=== PATIENT | male | born 1945 | race Caucasian/White ===

== ENCOUNTER 2019-10-01 09:33 | Outpatient (CLI) | payer MEDICARE, OTHER, SELFPAY ==
--- NOTE | ~2019-10-01 | XR_ITS ---
EXAMINATION: XR chest 2V DATE: 10/01/2019 11:04 INDICATION: Preoperative evaluation with risk factor of hypertension. TECHNIQUE: PA and lateral views of the chest were obtained. COMPARISON: Chest radiograph dated 07/09/2018 FINDINGS: The lungs remain clear with no focal airspace opacities, pulmonary edema, pleural effusion or pneumot horax. The cardiomediastinal silhouette is normal. Mild thoracic spondylosis. IMPRESSION: 1. No acute cardiopulmonary disease. Reviewed, dictated and finalized at location A.
[2019-10-01 11:19] LABS: Basophils Percent Auto 0.6 % (0.2-1.2); Eosinophils Absolute Auto 0.1 K/mm3 (0-0.3); Eosinophils Percent Auto 1.8 % (0-4.4); Hematocrit 44.5 % (42.0-52.0); Hemoglobin 15.3 g/dL (14.0-18.0); Immature Granulocyte Absolute 0.03 K/mm3 (0.00-0.031); Immature Granulocyte Percent A 0.4 % (0-0.5); Lymphocytes Absolute Auto 2.69 K/mm3 (0.9-3.2); Lymphocytes Percent Auto 37.7 % (18.3-44.2); Mean Corpuscular HGB Conc 34.4 g/dl (32-36); Mean Corpuscular Hemoglobin 30.8 pg (26-34); Mean Corpuscular Volume 89.5 fl (80-100); Mean Platelet Volume 9.9 fl (7.4-10.4); Monocytes Absolute Auto 0.8 K/mm3 (0.1-0.6); Monocytes Percent Auto 10.5 % (2.6-8.5); Neutrophils Absolute Auto 3.5 K/mm3 (1.3-6.7); Platelet Count Result 206 k/mm3 (150-375); Red Blood Count 4.97 M/mm3 (4.6-6.20); Red Cell Distribution Width 12.7 % (11.5-14.5); White Blood Count 7.1 K/mm3 (4.5-10.0)
[2019-10-01 11:24] LABS: Hemoglobin A1C 6.2 % (<5.7)
[2019-10-01 11:27] LABS: Albumin Level 4.6 g/dL (3.5-5.1); Blood Urea Nitrogen 26 mg/dL (9-20); Calcium 9.6 mg/dL (8.4-10.2); Carbon Dioxide 27 mmol/L (22-30); Chloride 103 mmol/L (98-107); Estimated Glomerular Filt Rate > 60; Glucose 128 mg/dL (75-110); Potassium 4.3 mmol/L (3.4-5.0); Sodium 139 mmol/L (137-145)
[2019-10-01 11:30] LABS: Urine Cotinine NEGATIVE
== END 2019-10-01 09:34 | disposition home or self-care (01) ==
LOC: ANHSURGERY 09:38
PROVIDERS: Visit Provider Orthopaedic Surgery
DX: M16.12 Unilateral primary osteoarthritis, left hip (principal)
CPT/HCPCS: 36415; 71046; 80048; 80307; 82040; 83036; 85025; 87070

== ENCOUNTER 2019-10-25 00:54 | Outpatient (CLI) | payer MEDICARE, OTHER, SELFPAY ==
[2019-10-25 19:20] LABS: SARS-CoV-2 RNA PCR Negative
== END 2019-10-25 00:55 | disposition home or self-care (01) ==
LOC: ANHCOVIDDT 00:55
PROVIDERS: Visit Provider Orthopaedic Surgery
DX: Z01.812 Encounter for preprocedural laboratory examination (principal); Z11.59 Encounter for screening for other viral diseases
CPT/HCPCS: 87635; C9803; U0003

== ENCOUNTER 2019-10-27 02:24 | Day surgery (SDC) | payer MEDICARE, OTHER, SELFPAY ==
[2019-10-01 10:11] VITALS: BMI 31.4
[2019-10-01 12:49] VITALS: BP 129/70; PULSE 66; RESP 18; TEMP 37; O2SAT 97
--- NOTE | 2019-10-25 15:03 | HP_ITS ---
DATE OF SERVICE: 10/27/2019 ADMIT DIAGNOSIS: Degenerative joint disease, left hip. HISTORY OF PRESENT ILLNESS: Mr. Pugh is a 73-year-old male patient of Dr. Howard, who presents today for a left total hip arthroplasty. He had a right total hip done with Dr. Smiley in August 2018. It has done very well for him and he is very happy with it. Unfortunately, his left hip is severely arthritic and he has reached a point where it is affecting him on a daily basis and he would like to proceed with total hip arthroplasty on the left at this time. PAST SURGICAL HISTORY: Significant for the total hip done approximately 1 year ago. He has also had eye surgery in 2009. PAST MEDICAL HISTORY: He has history of hypertension as well as gout. CURRENT MEDICATIONS: He takes allopurinol 100 mg daily, baby aspirin daily, atorvastatin 20 mg daily, Pepcid 20 mg daily, hydrochlorothiazide 12.5 mg daily, Mobic 15 mg daily, metoprolol 50 mg daily, pantoprazole 20 mg daily, telmisartan 20 mg daily. ALLERGIES: HE HAS NO KNOWN DRUG ALLERGIES. FAMILY HISTORY: Significant diabetes and heart disease. SOCIAL HISTORY: He has never smoked. PHYSICAL EXAMINATION: VITAL SIGNS: A 73-year-old male, who is 5 feet 8 inches and 219 pounds. Other vital signs per nursing on the morning of surgery. HEENT: Grossly normal. LUNGS: Clear bilaterally. HEART: Regular rate and rhythm. EXTREMITIES: He walks with mild limp. Flexion of his left hip is 115 with moderate pain. Internal rotation is to 0, external rotation is to 25, again with moderate pain in the groin. He has moderate pain in the groin with Stinchfield maneuvers and he has normal abduction strength in the lateral position. No tenderness over the greater trochanter. Skin around the hip is all normal. He has no edema in the lower extremities, 2+ posterior tibial pulse, 1+ dorsalis pedis pulse. He has normal muscle strength in all muscle groups of the left lower extremity. IMAGING DATA: X-rays demonstrate severe jwys-sf-fkaf arthritis type 1 in the left hip. IMPRESSION: Mr. Pugh has severe painful arthritis of his left hip. He has not improved with nonsurgical treatment. He is very happy with his right total hip, feels he is ready to proceed with the left. Surgical procedure as well as risks and complications were reviewed. All questions were answered and we will proceed. The patient will see his primary care doctor for presurgical clearance. He has also been seen by Dr. Miller, the woodyard operator. He has had a stress test done and has been cleared for surgery. He will stop his aspirin 1 week prior to surgery. His ejection fraction was at 78%. Chem panel was all within normal limits. Creatinine is 1.1. GFR is greater than 60. Hemoglobin is 15.3, platelets are 206. Nasal swab was negative. D I MT: Queenie
[2019-10-27] VITALS (12 sets, daily range): BP systolic 119–158; BP diastolic 55–71; PULSE 58–80; RESP 12–20; TEMP 35.2–36.4; O2SAT 95–100; BMI 31.0; BMI 30.7
--- NOTE | ~2019-10-27 | XR_ITS ---
XR surgery orthopedic DATE: 10/27/2019 15:41 INDICATION: Left hip replacement TECHNIQUE: 2 views 59.0 seconds fluoroscopy time [id number] [id number] COMPARISON: 08/05/2018 FINDINGS: Status post left femoral head neck resection and left total hip arthroplasty. Normal alignm ent at the left hip. Surgical clips overlie the inguinal area bilaterally. IMPRESSION: Status post left total hip arthroplasty Reviewed, dictated and finalized at Location A. Reviewed, dictated and finalized at location B.
--- NOTE | ~2019-10-27 | XR_ITS ---
XR hip LT 1V w AP pelvis DATE: 10/27/2019 16:06 INDICATION: Left hip total hip arthoplasty TECHNIQUE: AP and lateral views of left hip COMPARISON: None FINDINGS: Status post bilateral hip arthroplasty. There is subcutaneous emphysema at the left hip ar ea due to today's surgery. There is surgical drain at the left hip soft tissues. No fracture or disl ocation. IMPRESSION: Bilateral hip arthroplasty, immediately postoperative on the left Reviewed, dictated and finalized at location B.
[2019-10-27] MEDS: LACTATED RINGERS 1,000 ML 30 ML IV CONT ×3 (10:30→16:14)
[2019-10-27] MEDS: TRANEXAMIC ACID 1,000MG/ISO100 1,000 MG/100 ML BAG 200 MG IVPB (10:48)
[2019-10-27] MEDS: KETOROLAC 15 MG/ML VIAL (*BKC) IV PUSH (10:48)
[2019-10-27] MEDS: ACETAMINOPHEN 500 MG TABLET 1000 MG PO ×2 (10:59→17:56)
--- NOTE | 2019-10-27 11:30 | WPDANESEPPF ---
Anes - Initial Pre Proc Eval Procedure: Operation Date: 10/27/19 12:00 Proposed Procedures p Left Total Hip Arthroplasty, Anterior Approach - Lopez Smiley MD Date/Time: 10/27/19 11:30 Surgeon: Lopez Smiley MD Pre Op Diagnosis: Osteoarthritis Left Hip Patient Data Age: 73 Gender: M Height: 5 ft 9.5 in Weight: 96.8 kg Last Vital Signs Temp 97.5 F L 10/27/19 11:02 Pulse 67 10/27/19 11:02 Resp 18 10/27/19 11:02 BP 158/71 H 10/27/19 11:02 Pulse Ox 99 10/27/19 11:02 Allergies Allergy/AdvReac Type Severity Reaction Status Date / Time No Known Allergies Allergy Verified 10/27/19 10:55 Home Medications Medication Instructions Recorded Confirmed Type allopurinol 100 mg PO TID 10/01/19 10/27/19 History aspirin [Enteric Coated Aspirin] 81 mg PO DAILY 10/01/19 10/27/19 History atorvastatin 20 mg PO HS 10/01/19 10/27/19 History coQ10 (ubiquinol) 100 mg PO HS 10/01/19 10/27/19 History famotidine 20 mg PO BID 10/01/19 10/27/19 History hydrochlorothiazide 12.5 mg PO QPM 10/01/19 10/27/19 History lactobacillus combination no.4 3,000 mmu cells PO DAILY 10/01/19 10/27/19 History [Probiotic] melatonin 5 mg PO PRN PRN 10/01/19 10/27/19 History metoprolol succinate 50 mg PO QPM 10/01/19 10/27/19 History multivitamin,bc-sylm-bazcmlua 1 tablet PO DAILY 10/01/19 10/27/19 History [Complete Multivitamin] omega 4-etv-ppd-fish oil [[place]-3] 1 cap PO BID 10/01/19 10/27/19 History saw palmetto 160 mg PO HS 10/01/19 10/27/19 History telmisartan [Micardis] 20 mg PO QPM 10/01/19 10/27/19 History turmeric 400 mg PO BID 10/01/19 10/27/19 History Patient hx anesthesia problems: none Family hx anesthesia problems: none PMFSH Past Medical History Medical History (Updated 10/27/19 @ 11:21 by Aris Roach MD) Hyperlipidemia Hypertension JENSEN (obstructive sleep apnea) Anes - Eval Final PreProcedure Day of Procedure 10/27/19 11:30 Patient weight: overweight Heart: regular rate and rhythm Lungs: clear to auscultation Airway: Mallampati scale (has implanted upper frontal teeth he is concerned about) class II Neurological: alert and oriented Last oral intake: >/= 8 hours ASA classification: III Emergent: no Anesthetic plan: proceed Anesthesia type and monitoring: general ETT and standard monitoring Informed Consent: The patient's anesthetic plan and its attendant risks and benefits were discussed with the patient/family/POA. Questions were solicited and answers provided to the satisfaction of the patient/family/POA.
--- NOTE | 2019-10-27 11:43 | WPDHPUPDATE1 ---
History and Physical Update Update Date/Time: 10/27/19 11:43 History and Physical has been reviewed, including an updated exam of the patient. There are NO changes in the patient's condition. Risks, benefits, and alternatives have been discussed and questions answered. Patient agrees to proceed with procedure.
[2019-10-27] MEDS: ceFAZolin 2 GM/D5W 50 ML 2 GM/50 ML BAG IVPB (12:08)
[2019-10-27] MEDS: ceFAZolin SODIUM 1 GM VIAL 3 GM IRRIGATION (13:01)
[2019-10-27] MEDS: ceFAZolin SODIUM 1 GM VIAL IV PUSH (15:30)
--- NOTE | 2019-10-27 16:15 | PM.PROC ---
Procedure Note - Detailed Date of procedure: 10/27/19 Pre-op diagnosis: Osteoarthritis Left Hip Patient brought to the operating room and general anesthesia was administered the left hip prepped and draped usual fashion after positioned carefully on the OSI [place] table the feet carefully padded. He received weight based vancomycin 2 g of Ancef 1 g of tranexamic acid preoperatively. A 10 cm longitudinal incision was made starting 3 cm lateral to the ASIS. Dissection was carried down to the fascia over the tensor fascia aniya which was longitudinally incised. the interval between tensor fascia aniya and rectus femoris was developed. Crossing vessels of the ascending lateral femoral circumflex vessels were isolated ligated with suture and divided. Capsule was exposed. The gluteus minimus was elevated off the lateral capsule by abducting the leg and internally rotating this. Capsule was incised in the usual fashion and femoral neck osteotomy performed. A napkin ring of bone was removed. The femoral head was very difficult to extract and we ended up piece medially in the periphery of the femoral head which made it much smaller removed all the large rimming osteophyte and it was removed. the residual labrum was excised. The acetabulum had no remaining cartilage and was quite sclerotic. The leg was externally rotated and extended and the interval between piriformis and conjoined tendon was incised which allowed the piriformis to foot posteriorly. Anterior cap the leg was brought to a neutral position and the anterior capsule was elevated off the femur. Hemostasis was achieved with the Aquamantys. The acetabulum was reamed up to 59 mm and the 59 trial was very tight and we were not quite at the peripherally anteriorly and posteriorly. We reamed to a 60 and this 60 trial was very tight fact was briefly stock was so tight and this gave complete reaming of the anterior posterior mcclellan and superiorly. we chose the size 60 pinnacle shell which was impacted at 40? of abduction and appropriate anteversion and obtained a super Press-Fit. A single screw was also placed in the ilium and the 36 mm inner diameter liner was placed without difficulty. Large anteroinferior and inferior osteophytes removed at this time. The acetabulum tended to bleed quite a bit and bleeding had ceased with impaction of the acetabular liner. The leg was externally rotated extended and we broached the femur up to a size 6 with seemed to be getting a little bit tight with because of his ex Petterchak and bone quality. We took an intraoperative x-ray with the 1.5 neck and we were a little bit short by a couple of mm and the offset was diminished compared to the other side and clinically we were a little bit loose with a mildly excessive shock. I trialed with the size 5 mm head and this gave appropriate stability feel with shock and it was stable to external rotation lateral traction. We calcar planed and assess the size 6 stem and now I could cause a little bit of wiggle in the stem. The x-ray showed the probably go up 1 size and we removed the 6 broach and impacted the 7 broach using the pneumatic impactor device. This eventually seated to the level of the neck and had complete torsional and varus valgus stability. We chose the 7 high offset ACTIS stem and this impacted nicely to eventually come to rest on the neck with excellent stability. The trunnion was cleaned and dried and the size 5 mm neck 36 mm diameter ceramic femoral head was impacted firmly onto the trunnion. The wound was thoroughly irrigated with antibiotic solution again and the hip reduced and stability reconfirmed. He had ample Shuck but excellent stability. Final fluoroscopic x-ray view showed components in appropriate position. The anterior capsular flap was allow to left rest in situ. Earlier we had removed some of the lateral capsular flap for improved exposure. The local anesthetic cocktail was injected into the periarticular sof
--- NOTE | 2019-10-27 17:19 | ADMGEN ---
This patient, Zohaib Pugh, was admitted to Medical Room 243-01. Patient/family oriented to hospital policies and general routines including ID bracelet, bed and alarms, visiting hours, pain management, procedures, bathroom and other care routines, personal items, smoking policy, room service/diet, and visiting hours. Valuables list has been completed. Information on how to activate the Rapid Response Team has been discussed. Patient/Family are encouraged to report perceived risks to care and to ask questions if they do not understand what they are told or what they should do.
[2019-10-27] MEDS: SODIUM CHLORIDE 0.9% IV 1,000 ML 125 ML IV CONT (17:55)
[2019-10-27 17:58] LABS: Hematocrit 40.4 % (42.0-52.0); Hemoglobin 14.1 g/dL (14.0-18.0)
[2019-10-27] MEDS: SENNA/DOCUSATE SODIUM TABLET 2 TAB PO (18:29)
[2019-10-27] MEDS: TELMISARTAN 20 MG TABLET PO (18:29)
--- NOTE | 2019-10-27 18:43 | PC.NURSE ---
Paged Dr. Smiley in regards to clarifications on stool softeners.
[2019-10-27] MEDS: ATORVASTATIN 20 MG TABLET PO (20:59)
[2019-10-27] MEDS: FAMOTIDINE 20 MG TABLET PO (21:00)
--- NOTE | 2019-10-27 21:48 | PM.IMCN ---
Assessment and Plan Assessment and plan (1) History of total left hip arthroplasty: Code(s): Z96.642 - Presence of left artificial hip joint Status: Acute Assessment and Plan: Postop care per orthopedic physician. Pain management per orthopedic physician. DVT prophylaxis per Dr. bautista. Patient has incentive spirometer ordered. He has SCDs and DENNIS hose on. Patient continues on Celebrex. the patient is also on Eliquis. (2) BPH (benign prostatic hyperplasia): Code(s): N40.0 - Benign prostatic hyperplasia without lower urinary tract symptoms Status: Chronic Assessment and Plan: Patient takes tivs-gfi-rsxopow saw palmetto. He stated that it was slightly enlarged he also takes turmeri (3) Hyperlipidemia: Code(s): E78.5 - Hyperlipidemia, unspecified Status: Chronic Assessment and Plan: Continue with atorvastatin. (4) Hypertension: Code(s): I10 - Essential (primary) hypertension Status: Chronic Assessment and Plan: Patient is on Micardis. (5) Gout: Code(s): M10.9 - Gout, unspecified Status: Chronic Assessment and Plan: Patient typically takes allopurinol HPI Data of Consult Consult date: 10/27/19 Requesting Physician: Lopez Bautista MD Primary Care Provider: PHYSICIAN NOT ON STAFF Consult Narrative Narrative: Zohaib Pugh is a 73 year old male who has had a previous right total hip arthroplasty performed per Dr. bautista approximately 1 year ago and seemed to do well is August of 2018. The patient has severe osteoarthritis in both hips. The patient stated that he has been suffering for a long time with arthritis pain. He said he can walk fine but he can't run and he has been living with daily pain. He has tried Mobic which she stated does not work very well for him. He still has pain that affects his daily living. Patient stated that he could have his hip replaced at the [facility] but he would not be able to do the anterior version Thereforehe decided to have it done here. see operative report. Patient has a Drain to the left hip. estimated blood loss 1100. Patient was given 650 cc of red blood cells from [employer] at the end of the procedure. I thank Dr. bautista for the opportunity to consult on this patient. Date of service is 10/27/2019 Review of Systems Review of Systems: All systems reviewed & are unremarkable except as noted in HPI and below Constitutional: Constitutional: Reports as per HPI and Reports no additional constitutional complaints Eyes: Eyes: Reports as per HPI and Reports no additional eye complaints ENT: Reports system reviewed and no additional complaints, except as documented and Reports Normal hearing present Cardiovascular: Cardiovascular: Reports no additional cardiovascular complaints Respiratory: Respiratory: Reports no additional respiratory complaints and Reports no additional respiratory complaints Gastrointestinal: Gastrointestinal: Reports as per HPI and Reports no additional gastrointestinal complaints Musculoskeletal: Musculoskeletal: Reports no additional musculoskeletal complaints Integumentary/Breasts: Skin/Breast: Reports system reviewed and no additional complaints, except as docu and Reports as per HPI Neurologic: Reports system reviewed and no additional complaints, except as documented, Reports as per HPI and Reports Normal hearing present Psychiatric: Psychiatric: Reports no additional psychiatric complaints and Reports as per HPI Endocrine: Endocrine: Reports no additional endocrine complaints Hematologic/Lymphatic: Hematologic/Lymphatic: Reports no additional hematologic/lymphatic complaints Allergic/Immunologic: Allergic/Immunologic: Reports no additional allergic/immunologic complaints [facility] Past Medical History Medical History (Updated 10/27/19 @ 21:59 by Ana Escalante NP) Atrophic kidney BPH (benign prostatic hyperplasia) slightly enla
[2019-10-28] MEDS: ACETAMINOPHEN 500 MG TABLET 1000 MG PO ×3 (01:48→12:47)
[2019-10-28 01:55] VITALS: BP 110/49; PULSE 82; RESP 16; TEMP 36.5; O2SAT 96
[2019-10-28 05:09] LABS: Basophils Percent Auto 0.1 % (0.2-1.2); Hematocrit 35.6 % (42.0-52.0); Hemoglobin 12.4 g/dL (14.0-18.0); Immature Granulocyte Absolute 0.06 K/mm3 (0.00-0.031); Immature Granulocyte Percent A 0.4 % (0-0.5); Lymphocytes Percent Auto 8.4 % (18.3-44.2); Mean Corpuscular HGB Conc 34.8 g/dl (32-36); Mean Platelet Volume 10.1 fl (7.4-10.4); Monocytes Absolute Auto 1.3 K/mm3 (0.1-0.6); Monocytes Percent Auto 8.4 % (2.6-8.5); Neutrophils Absolute Auto 12.9 K/mm3 (1.3-6.7); Neutrophils Percent Auto 82.7 % (45.5-73.1); Platelet Count Result 153 k/mm3 (150-375); Red Cell Distribution Width 12.7 % (11.5-14.5); White Blood Count 15.5 K/mm3 (4.5-10.0)
[2019-10-28 05:32] VITALS: BP 114/53; PULSE 87; RESP 16; TEMP 36.7; O2SAT 95
[2019-10-28 05:33] LABS: Anion Gap 11.2 mmol/L (7-16); Blood Urea Nitrogen 22 mg/dL (9-20); Calcium 8.4 mg/dL (8.4-10.2); Carbon Dioxide 24 mmol/L (22-30); Chloride 104 mmol/L (98-107); Estimated CRCL calculation 66 ml/min; Estimated Glomerular Filt Rate > 60; Glucose 148 mg/dL (75-110); Potassium 4.2 mmol/L (3.4-5.0); Sodium 135 mmol/L (137-145)
--- NOTE | 2019-10-28 07:13 | PM.PNORT ---
Progress Note: A&P Additional Plan POD 1 alert avss labs-noted, pt having min pain, drain to come out this am, pt got to floor late yesterday-has not been up walking yet, wd-dry NVI. Plan to have PT work with pt today and then home later today Subjective Subjective Date/Time Seen: 10/28/19 07:13 Objective Data Vital Signs Vital Signs: Vital Signs - 24 hr 10/27/19 11:02 10/27/19 16:14 10/27/19 16:23 Temperature 36.4 C L 36.4 C Pulse Rate 67 76 77 Respiratory Rate 18 20 16 Blood Pressure 158/71 H 131/56 L 127/58 L Pulse Oximetry 99 100 100 10/27/19 16:30 10/27/19 16:45 10/27/19 17:00 Temperature Pulse Rate 73 70 69 Respiratory Rate 12 12 12 Blood Pressure 121/55 L 128/55 L 119/58 L Pulse Oximetry 99 95 100 10/27/19 17:07 10/27/19 17:25 10/27/19 17:40 Temperature 35.2 C L 35.3 C L Pulse Rate 67 69 58 L Respiratory Rate 13 16 16 Blood Pressure 129/56 L 134/59 L 128/61 Pulse Oximetry 99 100 100 10/27/19 18:10 10/27/19 19:10 10/27/19 22:00 Temperature 35.4 C L 36.3 C L 36.4 C Pulse Rate 61 79 80 Respiratory Rate 16 12 16 Blood Pressure 135/56 L 126/59 L 121/60 Pulse Oximetry 100 100 97 10/28/19 01:55 10/28/19 05:32 Temperature 36.5 C 36.7 C Pulse Rate 82 87 Respiratory Rate 16 16 Blood Pressure 110/49 L 114/53 L Pulse Oximetry 96 95 Intake/Output Intake/Output: Intake & Output 10/25/19 10/26/19 10/27/19 10/28/19 23:59 23:59 23:59 23:59 Intake Total 400 1120 Output Total 300 300 Balance 100 820 Meds/Results Medications: Active Medications Generic Name Dose Route Start Last Admin Trade Name Freq PRN Reason Stop Dose Admin Acetaminophen 1,000 mg 10/27/19 18:00 10/28/19 06:32 Tylenol Tablet PO 1,000 mg Q6HR JEISON Administration Allopurinol 100 mg 10/28/19 08:00 Zyloprim PO TIDWM JEISON Apixaban 2.5 mg 10/28/19 09:00 Eliquis PO 12/01/19 21:01 Q12HR JEISON Atorvastatin Calcium 20 mg 10/27/19 21:00 10/27/19 20:59 Lipitor PO 20 mg HS JEISON Administration Celecoxib 200 mg 10/28/19 08:00 Celebrex PO DAILY@0800 [facility] Docusate Sodium 100 mg 10/28/19 09:00 Colace Capsule PO Q12HR JEISON Famotidine 20 mg 10/27/19 21:00 10/27/19 21:00 Pepcid PO 20 mg Q12HR JEISON Administration Vancomycin HCl 1,000 mg in 250 mls @ 250 mls/hr 10/27/19 23:00 10/27/19 23:14 Vancomycin 1,000 Mg/D5w 250 Ml IVPB 10/28/19 11:59 250 mls/hr Q12H JEISON Administration Cefazolin Sodium 1 gm in 50 mls @ 100 mls/hr 10/27/19 20:00 10/28/19 06:00 Ancef 1 Gm/D5w 50 Ml Pm IVPB 10/28/19 12:29 100 mls/hr Q8H JEISON Administration Magnesium Hydroxide 30 ml 10/27/19 17:08 Milk Of Magnesia PO BID PRN Constipation Naloxone HCl 0.1 mg 10/27/19 17:08 Narcan IV PUSH Q2M PRN Opiate Reversal Oxycodone HCl 5 mg 10/27/19 18:00 10/28/19 06:32 Roxicodone Ir Tablet PO 5 mg Q4H JEISON Administration Oxycodone HCl 5 mg 10/27/19 17:08 Roxicodone Ir Tablet PO Q4H PRN Pain Rated 7-10 Telmisartan 20 mg 10/27/19 18:00 10/27/19 18:29 Micardis PO 20 mg QPM JEISON Administration Radiology Results: ITS Impressions Intraoperative X-Ray 10/27/19 15:45 IMPRESSION: Status post left total hip arthroplasty Hip/Pelvis X-Ray 10/27/19 16:11 IMPRESSION: Bilateral hip arthroplasty, immediately postoperative on the left Labs Labs: Laboratory Results - last 24 hr 10/27/19 10/27/19 10/28/19 10:40 17:47 04:52 WBC 15.5 H RBC 4.00 L Hgb 14.1 12.4 L Hct 40.4 L 35.6 L MCV 89.0 MCH 31.0 MCHC 34.8 RDW 12.7 Plt Count 153 MPV 10.1 Immature Gran % (Auto) 0.4 Neut % (Auto) 82.7 H Lymph % (Auto) 8.4 L [place] % (Auto) 8.4 Eos % (Auto) 0.0 Baso % (Auto) 0.1 L Lymph # (Auto) 1.30 [place] # (Auto) 1.3 H Eos # (Auto) 0.0 Baso # (Auto) 0.0 Abs Immat Gran (auto) 0.06 H Absolute Neuts (auto) 12.9 H Absolu
--- NOTE | 2019-10-28 08:14 | DS_ITS ---
DATE OF DISCHARGE: 10/28/2019 DIAGNOSIS: Degenerative joint disease, left hip. HOSPITAL COURSE: The patient is a 73-year-old male, who underwent anterior left total hip arthroplasty by Dr. Smiley on 10/27/2019, underwent procedure without any complications. He has been afebrile. Vital signs have been stable. Neurovascularly intact. His wound is dry. It is glued on the outside. He has light dressing over it. He is weightbearing as tolerated. He is on Eliquis for 5 weeks for DVT prophylaxis. He is on scheduled Tylenol as well as oxycodone 5 mg for pain control. He is also on Celebrex 200 mg daily. On postop day 1, his hemoglobin is 12.4, platelets 153. Chem panel is all within normal limits. The patient did not get up on the day of surgery. He got to the floor late. I will have physical therapy work with him today to make sure he is comfortable, able to move around well and he will be discharged to home later today. The patient was advised to keep the leg elevated at home to prevent swelling. He has not urinated much when he was seen in the morning. He had a similar problem when his other hip was done about a year ago. Once he was up ambulating, he did not have any problems after that, so we will monitor that today to make sure he is able to urinate before he is discharged to home. The patient was advised after he goes home, if he has any questions or concerns he should call the office. Otherwise, we will see him on his appointed date. He will also go home on MiraLax and Senokot as well for constipation. Ivonne I MT: Queenie
[2019-10-28] MEDS: APIXABAN 2.5 MG TABLET PO (09:18)
[2019-10-28] MEDS: CELECOXIB 200 MG CAPSULE PO (09:18)
[2019-10-28] MEDS: allopurinoL 100 MG TABLET PO ×3 (09:18→16:05)
[2019-10-28] MEDS: FAMOTIDINE 20 MG TABLET PO (09:18)
[2019-10-28] MEDS: DOCUSATE SODIUM 100 MG CAPSULE PO (09:18)
--- NOTE | 2019-10-28 09:40 | WPDANESPN ---
Anes - Prog Note Post-Op Date/Time: 10/28/19 09:40 Cardiovascular status: normal Respiratory status: normal Airway patency: baseline Mental status: baseline Post-Op hydration status: normal Vital Signs: Last Vital Signs Temp 36.7 C 10/28/19 05:32 Pulse 87 10/28/19 05:32 Resp 16 10/28/19 05:32 BP 114/53 L 10/28/19 05:32 Pulse Ox 95 10/28/19 05:32 I/O: Intake & Output 10/27/19 10/28/19 10/28/19 23:59 07:59 15:59 Intake Total 250 1420 240 Output Total 300 300 450 Balance -50 1120 -210 Laboratory Tests 10/28/19 04:52 10/28/19 04:52 10/27/19 10/27/19 10/28/19 10:40 17:47 04:52 WBC 15.5 H RBC 4.00 L Hgb 14.1 12.4 L Hct 40.4 L 35.6 L MCV 89.0 MCH 31.0 MCHC 34.8 RDW 12.7 Plt Count 153 MPV 10.1 Immature Gran % (Auto) 0.4 Neut % (Auto) 82.7 H Lymph % (Auto) 8.4 L [place] % (Auto) 8.4 Eos % (Auto) 0.0 Baso % (Auto) 0.1 L Lymph # (Auto) 1.30 [place] # (Auto) 1.3 H Eos # (Auto) 0.0 Baso # (Auto) 0.0 Abs Immat Gran (auto) 0.06 H Absolute Neuts (auto) 12.9 H Absolute Nucleated RBC 0.0 Nucleated RBC % 0.0 Sodium Potassium Chloride Carbon Dioxide Anion Gap BUN Creatinine Estim Creat Clear Calc Estimated GFR Glucose Calcium Blood Type A Positive Antibody Screen Negative 10/28/19 04:52 WBC RBC Hgb Hct MCV MCH MCHC RDW Plt Count MPV Immature Gran % (Auto) Neut % (Auto) Lymph % (Auto) [place] % (Auto) Eos % (Auto) Baso % (Auto) Lymph # (Auto) [place] # (Auto) Eos # (Auto) Baso # (Auto) Abs Immat Gran (auto) Absolute Neuts (auto) Absolute Nucleated RBC Nucleated RBC % Sodium 135 L Potassium 4.2 Chloride 104 Carbon Dioxide 24 Anion Gap 11.2 BUN 22 H Creatinine 1.00 Estim Creat Clear Calc 66 Estimated GFR > 60 Glucose 148 H Calcium 8.4 Blood Type Antibody Screen Post-procedural complaints: none Patient Feedback: Patient satisfied with anesthetic care.
[2019-10-28 09:54] VITALS: BP 112/56; PULSE 89; RESP 18; TEMP 36.5; O2SAT 99
--- NOTE | 2019-10-28 10:02 | PM.IMPN ---
Progress Note: A&P Assessment and Plan (1) History of total left hip arthroplasty: Code(s): Z96.642 - Presence of left artificial hip joint Status: Acute Assessment and Plan: Postop day #1. Postop care per orthopedic physician. Pain management per orthopedic physician. DVT prophylaxis per Dr. bautista. Patient has incentive spirometer ordered. He has SCDs and DENNIS hose on. Patient continues on Celebrex. the patient is also on Eliquis. The patient is stable from a medical perspective and is able to be discharge whenever orthopedic surgeon believes he is ready. (2) BPH (benign prostatic hyperplasia): Code(s): N40.0 - Benign prostatic hyperplasia without lower urinary tract symptoms Status: Chronic Assessment and Plan: Patient takes [id number]-[id number] saw palmetto. He stated that it was slightly enlarged he also takes turmeric He denies any urinary symptoms at this time. (3) Hyperlipidemia: Code(s): E78.5 - Hyperlipidemia, unspecified Status: Chronic Assessment and Plan: Continue with atorvastatin. (4) Hypertension: Code(s): I10 - Essential (primary) hypertension Status: Chronic Assessment and Plan: Patient is on Micardis. His blood pressure has been stable since surgery. (5) Gout: Code(s): M10.9 - Gout, unspecified Status: Chronic Assessment and Plan: Patient typically takes allopurinol Time Spent With Patient Time with patient: 25 - 35 minutes Subjective Date/time seen: 10/28/19 10:02 Interval history: Date of service 10/28/2019: the patient reports feeling well after his surgery yesterday. He denies any pain to his right hip at this time and states he did well with therapy. He does report a hoarse voice and slightly sore throat and he believes it is from being intubated from his surgery. He does not want anything for this at this time. He is passing some gas but denies any bowel movements since surgery. he denies any chest pain, shortness of breath, cough, fever, chills, nausea, vomiting, abdominal pain, leg swelling, calf pain or any other symptoms at this time. Review of Systems Review of Systems: All systems reviewed & are unremarkable except as noted in HPI and below Exam Narrative: Exam Narrative: General: 73-year-old man sitting up in the chair watching TV. Appears comfortable. In no acute distress. Skin: No jaundice or cyanosis. Good skin turgor. Neck: Full range of motion. Supple. Respiratory: Lungs are clear to auscultation bilaterally. No bony chest wall tenderness. Cardiovascular: The heart has a regular rate and rhythm without murmur. Lower extremities: No lower extremity edema. Distal pulses are easily palpated. No calf tenderness to palpation. Gastrointestinal: The abdomen is soft, nontender and nondistended with active bowel sounds. Psychiatric: Lucid and oriented. Memory intact. Neurologic: No focal deficits. Speech is clear. No facial drooping. Objective Data Vital Signs Vital Signs: Vital Signs - 24 hr 10/27/19 11:02 10/27/19 16:14 10/27/19 16:23 Temperature 97.5 F L 97.6 F Pulse Rate 67 76 77 Respiratory Rate 18 20 16 Blood Pressure 158/71 H 131/56 L 127/58 L Pulse Oximetry 99 100 100 10/27/19 16:30 10/27/19 16:45 10/27/19 17:00 Temperature Pulse Rate 73 70 69 Respiratory Rate 12 12 12 Blood Pressure 121/55 L 128/55 L 119/58 L Pulse Oximetry 99 95 100 10/27/19 17:07 10/27/19 17:25 10/27/19 17:40 Temperature 95.4 F L 95.6 F L Pulse Rate 67 69 58 L Respiratory Rate 13 16 16 Blood Pressure 129/56 L 134/59 L 128/61 Pulse Oximetry 99 100 100 10/27/19 18:10 10/27/19 19:10 10/27/19 22:00 Tempera
[2019-10-28 13:29] VITALS: BP 140/68; PULSE 89; RESP 20; TEMP 36.2; O2SAT 100
== END 2019-10-28 16:13 | disposition home or self-care (01) ==
LOC: ANHSURGERY 10:03 → ANH2MED 17:10
PROVIDERS: Visit Provider Orthopaedic Surgery
PROC: (CPT 27130; principal; 2019-10-27 12:00)
DX: M16.12 Unilateral primary osteoarthritis, left hip (principal); I10 Essential (primary) hypertension; E78.5 Hyperlipidemia, unspecified; G47.33 Obstructive sleep apnea (adult) (pediatric); N40.0 Benign prostatic hyperplasia without lower urinary tract symptoms; M10.9 Gout, unspecified; Z79.82 Long term (current) use of aspirin
CPT/HCPCS: 27130; 36415; 73501; 80048; 85014; 85018; 85025; 86850; 86900; 86901; 97116; 97161; 97165; A9270; C1776; J0171; J0690; J1170; J1885; J2250; J2270; J2795; J3010; J3370; J7030; J7120